=== PATIENT | male | born 1975 | race Caucasian/White ===

== ENCOUNTER 2016-08-27 19:41 | Emergency (ER) | payer OTHER ==
[~2016-08-27] VITALS: Ht 170.2 cm; Wt 71.7 kg
[~2016-08-27 19:41] MED LIST: AUGMENTIN 400 M1 CTB PO; CYCLOBENZAPRINE10 M1 PO; FLEXERIL10 MG PO; IBUPROFEN800 M1 PO; MOTRIN 600 MG600 MG PO; MOTRIN800 MG PO; NASONEX0.05 MG/Ac NAS; PERCOCET 325 MG1 TA2 PO; ULTRAM50 M1 PO; VICODIN 500 MG-1 TAB PO
[2016-08-27 20:01] VITALS: BP 126/74
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
[2016-08-27] MEDS ORDERED: CYCLOBENZAPRINE10 M1 PO (21:06)
[2016-08-27] MEDS ORDERED: TRAMADOL HCL50 M1 PO (21:06)
== END 2016-08-27 21:10 ==
LOC: ERH 19:41
DX: G89.29 Other chronic pain (principal); M54.2 Cervicalgia